=== PATIENT | female | born 1965 | race African-American/Black ===

== ENCOUNTER 2025-03-26 20:35 | Emergency (ER) | payer BC ==
[~2025-03-26] VITALS: Ht 175.3 cm; Wt 85.3 kg
[~2025-03-26 20:35] MED LIST: AZITHROMYCIN500 MG PO; CONEX TABLET1 EACH PO; MEDROL4 MG PO; PROVENTIL HFA6.7 GM IH; TUSSIONEX PENNKI5 ML PO; XOPENEX1.25 MG/0. IH
[2025-03-26] MEDS ORDERED: TETANUS & DIPHTHERIA TOX,ADULT 0.5 ML VIAL IM ONE (21:00)
[2025-03-26] MEDS ORDERED: LIDOCAINE HCL 1% 10ML VIAL PERCUT ONE (21:00)
[2025-03-26] MEDS ORDERED: CEFTRIAXONE SODIUM 1,000 MG VIAL IM ONE (21:00)
[2025-03-26] MEDS ORDERED: PEPCID AC20 MG PO (21:10)
[2025-03-26] MEDS ORDERED: CEFUROXIME500 MG PO (21:10)
== END 2025-03-26 21:35 | disposition home or self-care (01) ==
LOC: ER 20:35
DX: S61.220A Laceration with foreign body of right index finger without damage to nail, initial encounter (principal); W26.8XXA Contact with other sharp object(s), not elsewhere classified, initial encounter; Y93.89 Activity, other specified; Y92.018 Other place in single-family (private) house as the place of occurrence of the external cause
CPT/HCPCS: 12002; 90471; 90714; J1670